=== PATIENT | female | born 1985 | race Caucasian/White ===

== ENCOUNTER 2021-02-19 06:30 | Inpatient (IN) ==
[2021-02-19] MEDS ORDERED: PITOCIN ONE ×2 (06:38→16:36)
[2021-02-19] MEDS ORDERED: BETADINE SOLN ONE (06:38)
[2021-02-19] MEDS ORDERED: D5 1/2 NS 1,000 ML 1,000 ML IV ONE (06:38)
--- NOTE | 2021-02-19 07:42 | DR.OB ---
OB Quick Note - Assessment/Plan Assessment/Plan: L&D 02/19/21 at 7:10am S-No complaint. O-Afebrile,VSS CTT=819 with good LTV, +accel, no decel. CTX=mild irritability CVX=1cm/50%/-1/VTX AROM with light meconium. IUPC and FSE placed. A-IUP at 38 6/7 weeks for induction AMA Abn. quad screen anxiety GERD P-Begin pitocin induction Anticipate
[2021-02-19] MEDS ORDERED: D5 LR + PITOCIN 10 UNITS/L 10 UNITS/1,000 ML BAG IV PRN (07:52)
[2021-02-19] MEDS ORDERED: REGLAN INJ 10 MG VIAL IVP PRN ×3 (07:52→18:41)
[2021-02-19] MEDS ORDERED: MORPHINE SULFATE INJ 2 MG INJ IVP PRN (07:52)
[2021-02-19] MEDS ORDERED: PITOCIN IVP ONE (07:52)
[2021-02-19] MEDS ORDERED: PHENERGAN INJ 25 MG IM PRN ×2 (07:52→18:14)
[2021-02-19] MEDS ORDERED: NUBAIN INJ 200 MG VIAL MULTIDOSE IVP PRN (07:52)
[2021-02-19] MEDS ORDERED: D5 1/2 NS 1,000 ML 1,000 ML IV SCH (07:52)
[2021-02-19] MEDS ORDERED: STADOL INJ IVP PRN (07:54)
[2021-02-19] MEDS ORDERED: STADOL INJ ONE (09:02)
[2021-02-19] MEDS ORDERED: FENTANYL VIAL INJ 100 mcg ONE ×2 (11:43→11:44)
[2021-02-19] MEDS ORDERED: LR 1,000 ML IV 1,000 ML IV ONE ×2 (11:43→15:38)
[2021-02-19] MEDS ORDERED: NAROPIN EPIDURAL 0.2% 100 ML ONE (11:44)
[2021-02-19] MEDS ORDERED: ANCEF 1 GRAM IV PREMIX* 1 G/50 ML BAG IV ONE ×2 (16:11→16:41)
[2021-02-19] MEDS ORDERED: DILAUDID INJ ONE (16:23)
[2021-02-19] MEDS ORDERED: LIDOCAINE 2%-EPI 1:200,000 ONE (16:23)
[2021-02-19] MEDS ORDERED: D5 1/2 NS 1,000 mL + PITOCIN 20 UNITS/L IV 20 UNITS/1,000 ML BAG IV ONE (16:30)
--- NOTE | 2021-02-19 16:34 | DR.OB ---
OB Quick Note - Assessment/Plan Assessment/Plan: L&D 02/19/21 at 4:30pm S-No complaint. O-Afebrile,VSS YSG=621 with good LTV, +accel, no decel. CTX=q 2-3 min., about 35-45mmHg CVX=2cm/75%/-1 (no change in over 2 hours) A-IUP at 38 6/7 weeks with failure to dilate P-To C/S
[2021-02-19] MEDS ORDERED: DIPRIVAN VIAL ONE (16:36)
[2021-02-19] MEDS ORDERED: ZOFRAN INJ 4 MG VIAL ONE (16:36)
[2021-02-19] MEDS ORDERED: NS 1,000 ML IV 1,000 ML ONE (17:36)
[2021-02-19] MEDS ORDERED: ZOFRAN INJ 4 MG VIAL IVP PRN ×2 (18:14→18:41)
[2021-02-19] MEDS ORDERED: BENADRYL INJ 50 MG VIAL IVP PRN ×2 (18:14→18:41)
[2021-02-19] MEDS ORDERED: BARHEMSYS INJ IVP PRN (18:14)
[2021-02-19] MEDS ORDERED: PERCOCET TAB 5/325 MG PO PRN (18:41)
[2021-02-19] MEDS ORDERED: NARCAN INJ IVP PRN (18:41)
[2021-02-19] MEDS ORDERED: TORADOL 30 MG VIAL IVP PRN (18:41)
[2021-02-19] MEDS ORDERED: ADACEL or BOOSTRIX TDaP VACCINE IM ONE ×2 (18:41→21:40)
[2021-02-19] MEDS ORDERED: D5 1/2 NS 1,000 ML 1,000 ML with PITOCIN 20 UNITS IV SCH ×2 (19:00)
[2021-02-19] MEDS ORDERED: ZOLOFT ONE (21:01)
[2021-02-19] MEDS: LAMICTAL TAB 100 MG PO SCH (21:42)
[2021-02-19] MEDS: ZOLOFT PO SCH (21:42)
[2021-02-19] MEDS: MYLICON TAB 80 MG CHEW PO PRN (22:00)
[2021-02-20 05:12] LABS: HEMATOCRIT 28.8 % (36.0-47.0)
[2021-02-20] MEDS: COLACE CAP 100 MG PO SCH ×2 (10:10→21:13)
[2021-02-20] MEDS: PROTONIX TAB 40 MG PO SCH (10:11)
[2021-02-20] MEDS: MOTRIN TAB 800 MG PO PRN ×2 (10:11→18:08)
[2021-02-20] MEDS: PRENATAL PLUS PO SCH (10:11)
[2021-02-20] MEDS: PERCOCET TAB 5/325 MG PO PRN ×3 (10:12→20:00)
[2021-02-20] MEDS: MYLICON TAB 80 MG CHEW PO PRN ×2 (10:12→18:10)
[2021-02-20] MEDS: BACTROBAN TOPICAL OINT TOP SCH ×2 (14:47→21:15)
[2021-02-20] MEDS ORDERED: ZOLOFT ONE (21:10)
[2021-02-20] MEDS: LAMICTAL TAB 100 MG PO SCH (21:14)
[2021-02-20] MEDS: ZOLOFT PO SCH (21:14)
[2021-02-21] MEDS: PERCOCET TAB 5/325 MG PO PRN ×2 (02:12→09:51)
[2021-02-21] MEDS: MOTRIN TAB 800 MG PO PRN (04:14)
[2021-02-21] MEDS: BACTROBAN TOPICAL OINT TOP SCH (06:15)
[2021-02-21] MEDS: COLACE CAP 100 MG PO SCH (09:50)
[2021-02-21] MEDS: PROTONIX TAB 40 MG PO SCH (09:53)
[2021-02-21] MEDS: PRENATAL PLUS PO SCH (09:53)
[2021-02-21 12:02] VITALS: BP 131/84
== END 2021-02-21 12:49 | disposition home or self-care (01) | DRG 788 ==
LOC: LD 06:35 → MED/SURG 18:46
PROVIDERS: ADMIT Specialist; ATTEND Specialist
DX: Z3A.38 38 weeks gestation of pregnancy; O62.0 Primary inadequate contractions; Z37.0 Single live birth; O26.893 Other specified pregnancy related conditions, third trimester; O61.8 Other failed induction of labor